=== PATIENT | female | born 2000 | race Two or more races ===

== ENCOUNTER 2025-04-18 15:21 | Emergency (ER) | payer BC, SELFPAY ==
[2025-04-18 15:40] VITALS: BP 127/87; PULSE 72; RESP 18; TEMP 36.8; O2SAT 98; BMI 45.7
[2025-04-18] MEDS: DiphenhydrAMINE 25 MG CAPSULE PO (16:06)
[2025-04-18] MEDS: FAMOTIDINE 20 MG TABLET 40 MG PO (16:06)
[2025-04-18] MEDS: DEXAMETHASONE SOD PHOS INJ 10 MG/ML VIAL IM (16:06)
--- NOTE | 2025-04-18 16:23 | EDNOTE_ITS ---
ED Allergic Reaction RME/HPI General Chief complaint: Allergic Reaction Stated complaint: Allergic Reaction/swollen eyes Time Seen by Provider: 04/18/25 15:22 Arrival date/time: 04/18/25 15:21 25-year-old female with no significant medical problems reports she is not presents with concerns for swelling around her eyes itching and rash. Limitations: no limitations Related Data Previous Rx's ?Medication ?Instructions ?Recorded ibuprofen 800 mg tablet 800 mg PO TID PRN pain #30 t abs 10/27/18 diphenhydramine HCl 25 mg capsule 25 mg PO Q8H PRN all ergic symptoms 04/18/25 (Benadryl) #30 caps prednisone 10 mg tablet 30 mg (3 x 10 mg) PO BID 3 d ays 04/18/25 #18 tabs Allergies Allergy/AdvReac Type Severity Reaction Status Date / Time No Known Allergies Allergy Verified 05/15/21 11:44 Review of Systems Review of Systems Systems Reviewed: All systems reviewed, normal except as documented Constitutional Constitutional: Reports system reviewed and no additional complaints, except as documented, Denies fever(s) and Denies headache(s) Eyes Eyes: Reports system reviewed and no additional complaints, except as documented and Denies blurry vision ENT Ears, Nose, Mouth, and Throat: Reports system reviewed and no additional complaints, except as documented, Denies headache(s), Denies nasal congestion and Denies nasal discharge Cardiovascular Cardiovascular: Reports system reviewed and no additional complaints, except as documented, Denies chest pain and Denies dyspnea Respiratory Respiratory: Reports system reviewed and no additional complaints, except as documented, Denies chest congestion, Denies cough and Denies dyspnea Gastrointestinal Gastrointestinal: Reports system reviewed and no additional complaints, except as documented and Denies abdominal pain Integumentary/Breasts Skin/Breast: Reports system reviewed and no additional complaints, except as documented, Reports pruritus and Reports rash Neurologic Neurologic: Reports system reviewed and no additional complaints, except as documented, Reports as per HPI and Denies headache(s) Past Medical History Social History SMOKING STATUS: Never smoker ED Exam General Limitations: Present no limitations General appearance: Present alert and in no apparent distress Head Head exam: Present atraumatic Eye Eye exam: Present normal appearance, PERRL and EOMI ENT ENT exam: Present normal exam, normal oropharynx and mucous membranes moist Neck Neck exam: Present normal inspection, full ROM and trachea midline Chest Chest inspection: Present normal inspection and symmetric chest wall rise Respiratory Respiratory exam: Present normal lung sounds bilaterally Cardiovascular Cardiovascular exam: Present regular rate, normal rhythm and normal heart sounds Abdominal Exam Abdominal exam: Present soft and normal bowel sounds Extremities Exam Extremities exam: Present normal inspection and full ROM Back Exam Back exam: Present normal inspection and full ROM Neurological Exam Neurological exam: Present alert, oriented X3 and CN II-XII intact Psychiatric Psychiatric exam: Present normal affect and normal mood Skin Skin exam: Present warm, dry, intact and normal color Course Quality Measures none Orders Category Date Time Status Dexamethasone Inj [Decadron Inj] Med 04/18/25 15:54 Discontinued 10 mg IM X1 ONE DiphenhydrAMINE [Benadryl] Med 04/18/25 15:54 Discontinued 25 mg PO X1 ONE Famotidine [Pepcid] Med 04/18/25 15:54 Discontinued 40 mg PO X1 ONE Vital Signs Vital signs: Vital Signs Temperature 98.3 F 04/18/25 15:40 Pulse Rate 72 04/18/25 15:40 Respiratory Rate 18 04/18/25 15:40 Blood Pressure 127/87 H 04/18/25 15:40 Pulse Oximetry (%) 98 04/18/25 15:40 Oxygen Delivery Method Room Air 04/18/25 15:40 O2 saturation 98% on room air with normal limits Allergic Reaction MDM Narrative MDM Narrative:: 25-year-old female with no significant medical problems reports she is not presents with concerns for swelling around her eyes itching and rash. On exam patient is no evidence of anaphylaxis symptoms are consistent with allergic reaction patient is no tongue swelling no difficulty breathing Patient be treated symptomatically at this time Patient discharged home in no distress to follow-up with primary care doctor in the next 24 to 48 hours and for any worsening symptoms to return to the ER immediately Patient data External records reviewed:: [facility] previous records Clinical information provided by:: patient Social determinants that could affect healthcare access:: none Patient has the following chronic illnesses:: None How is presenting disease/condition affected by chronic disease/condition?: no chronic disease Evaluation data The following diagnostics were reviewed and interpreted by me:: other (specify) (N/A) Lab and/or radiology exams considered but not ordered:: Considered not ordered Interpretation Summary: N/A Medications / Prescriptions Medications or Prescriptions considered but not ordered:: Given Medication administrations:: Medication Administration History Discontinued Medications Dexamethasone Sodium Phosphate (Dexamethasone Sod Phos Inj 10 Mg/Ml Vial) 10 mg IM X1 ONE Stop: 04/18/25 15:55 Last Admin: 04/18/25 16:06 Dose: 10 mg Documented By: TREY Diphenhydramine HCl (Diphenhydramine 25 Mg Capsule) 25 mg PO X1 ONE Stop: 04/18/25 15:55 Last Admin: 04/18/25 16:06 Dose: 25 mg Documented By: TREY Famotidine (Famotidine 20 Mg Tablet) 40 mg PO X1 ONE Stop: 04/18/25 15:55 Last Admin: 04/18/25 16:06 Dose: 40 mg Documented By: TREY Given Consultations Consultation(s) initiated? (list below): No Diagnosis Differential Diagnosis allergic reaction: anaphylaxis, allergic reaction and angioedema Most likely diagnosis given after review of the tests above:: Allergic reaction Admission Indicated Admission indicated?: not indicated Admission Request Was there a request for admission?: No Disposition Plan Disposition Plan: Discharge Discharge Attestation Discharge Attestation: The patient and all family members were given an opportunity to ask questions and understood the discharge instructions. Discharge instructions specifically effects, indications for sooner follow up or return to the emergency department, and the expected course of current diagnosis. Patient condition: Stable Discharge Plan Plan Patient Disposition: HOME (Self Care) Discharge Disposition comment: Stable Prescriptions/Referrals Prescriptions/Med Rec: New prednisone 10 mg tablet 30 mg PO BID 3 Days Qty: 18 0RF diphenhydramine HCl [Benadryl] 25 mg capsule 25 mg PO Q8H PRN (Reason: allergic symptoms) Qty: 30 0RF No Action ibuprofen 800 mg tablet 800 mg PO TID PRN (Reason: pain) Qty: 30 0RF Referrals: No Primary/Family,Physician [Primary Care Provider] - 04/19/25 Problem List Clinical Impression: Allergic reaction Patient/Caregiver Discharge Instructions Additional Instructions: Please follow up with your primary care doctor in the next 24-48hrs for any worsening symptoms return here immediately Print Language: Guyanese Stand Alone Forms: Alessandra Award Info., Work/School Release, Patient Portal Info Letter KAYLEIGH/DARREN Supervising Physician KAYLEIGH/DARREN Supervising Physician: Dr house
== END 2025-04-18 16:32 | disposition home or self-care (01) ==
PROVIDERS: Emergency Provider Family Medicine
DX: T78.40XA Allergy, unspecified, initial encounter (principal)
CPT/HCPCS: 96372; 99283; J1100; A9270